=== PATIENT | male | born 1975 | race Hispanic/Latino ===

== ENCOUNTER 2022-10-08 08:46 | Inpatient (IN) | payer OTHER, SELFPAY ==
[2022-10-08] MEDS ORDERED: Morphine 4 MG/ML VIAL ONE (09:09)
[2022-10-08 09:19] LABS: #Basophils 0.1 thou/uL (0.0-0.2); #Eosinphils 0.1 thou/uL (0.0-0.7); #Lymphocytes 3.8 thou/uL (1.20-3.40); #Monocytes 0.7 thou/uL (0.11-0.59); #Neutrophils 10.9 thou/uL (1.40-6.50); %Basophils 0.5 % (0.0-1.0); %Eosinophils 0.8 % (0.0-10.0); %Lymphocytes 24.2 % (21.0-51.0); %Monocytes 4.6 % (0.0-10.0); %Neutrophils 69.8 % (42.0-75.0); Hemoglobin 15.6 g/dL (14.0-18.0); Mean Corpuscular HGB CONC 33.7 g/dL (32.0-36.0); Mean Corpuscular Hemoglobin 31.2 pg (27.0-31.0); Mean Corpuscular Volume 92.5 fl (78.0-98.0); Mean Platelet Volume 7.2 fL (7.4-10.4); Platelet Count 344 10x3/uL (130-400); RBC Distribution Width 12.3 % (11.5-14.5); Red Blood Cell (RBC) Count 5.01 mill/uL (4.70-6.10); White Blood Cell (WBC) Count 15.7 10x3/uL (4.8-10.8)
[2022-10-08 09:30] LABS: INR-International Normal Ratio 0.9; Prothrombin Time 12.2 sec (12.0-14.7)
[2022-10-08 09:46] LABS: ALT (SGPT) 35 U/L (8-55); AST (SGOT) 38 U/L (5-34); Albumin 4.5 g/dL (3.5-5.0); Alcohol Less than 10 mg/dL (Less than 10); Alkaline Phosphatase 62 U/L (40-110); Anion Gap 12 mmol/L (10-20); BUN (Urea Nitrogen) 13 mg/dL (8.9-20.6); Bilirubin, Total 0.6 mg/dL (0.2-1.2); Calc. Creatinine Clearance 0 mL/min (70-130); Calcium 9.3 mg/dL (7.8-10.44); Carbon Dioxide 23 mmol/L (22-29); Chloride 107 mmol/L (98-107); Estimated GFR 92; Globulin 3.1 g/dL (2.4-3.5); Glucose 146 mg/dL (70-105); Lipase 24 U/L (8-78); Potassium 3.2 mmol/L (3.5-5.1); Protein, Total 7.6 g/dL (6.0-8.3); Sodium 139 mmol/L (136-145)
[2022-10-08] MEDS ORDERED: Ketorolac Tromethamine 30 MG/ML VIAL ONE (11:25)
[2022-10-08] MEDS ORDERED: Ondansetron ODT 4 MG TAB PO PRN (11:25)
[2022-10-08] MEDS ORDERED: Ipratropium/Albuterol 3 ML NEB NEB PRN (11:25)
[2022-10-08] MEDS ORDERED: Dextrose 5% in Water 1,000 ML IV PRN (11:25)
[2022-10-08] MEDS ORDERED: hydrALAZINE 20 MG/ML VIAL SLOW IVP PRN ×2 (11:25→11:31)
[2022-10-08] MEDS ORDERED: Morphine 4 MG/ML VIAL SLOW IVP PRN ×2 (11:25→19:27)
[2022-10-08] MEDS ORDERED: Ondansetron PF 4 MG/2 ML Vial IVP PRN (11:25)
[2022-10-08] MEDS ORDERED: Morphine 2 MG/ML VIAL SLOW IVP PRN (11:25)
[2022-10-08] MEDS ORDERED: Dextrose 50% Abboject 50 ML SYRINGE SLOW IVP PRN (11:25)
[2022-10-08] MEDS ORDERED: Sodium Chloride 0.9% 1,000 ML IV SCH ×2 (11:30→15:00)
[2022-10-08] MEDS ORDERED: Cyclobenzaprine 10 MG TAB PO PRN (11:31)
[2022-10-08] MEDS ORDERED: Acetaminophen 500 MG TAB PO SCH (11:45)
[2022-10-08] MEDS ORDERED: traMADol HCl 50 MG TAB PO SCH (11:45)
[2022-10-08] MEDS ORDERED: Iopamidol-370 76% 500 ML 1 ML ONE (12:48)
[2022-10-08 13:18] VITALS: BMI 25.9
[2022-10-08] MEDS ORDERED: FLU VACC QS2022-23(6MOS UP)/PF 60 MCG/0.5 ML SYRINGE IM ONE (13:30)
[2022-10-08] MEDS: Ketorolac Tromethamine 30 MG/ML VIAL IVP SCH ×3 (13:30→23:41)
[2022-10-08] MEDS: Ipratropium/Albuterol 3 ML NEB NEB SCH ×2 (14:56→19:02)
[2022-10-08] MEDS: Gabapentin 300 MG CAP PO SCH ×2 (15:17→21:13)
[2022-10-08] MEDS: Acetaminophen 500 MG TAB PO SCH ×2 (15:18→21:12)
[2022-10-08] MEDS: traMADol HCl 50 MG TAB PO SCH ×2 (17:33→23:41)
[2022-10-08] MEDS ORDERED: Loratadine 10 MG TAB PO PRN (19:32)
[2022-10-08] MEDS: Famotidine 20 MG TAB PO SCH (21:13)
[2022-10-08] MEDS: Senokot S 8.6-50 MG TAB PO SCH (21:14)
[2022-10-09] MEDS: Acetaminophen 500 MG TAB PO SCH ×3 (04:28→15:44)
[2022-10-09] MEDS: traMADol HCl 50 MG TAB PO SCH ×2 (05:25→11:16)
[2022-10-09] MEDS: Ketorolac Tromethamine 30 MG/ML VIAL IVP SCH (05:25)
[2022-10-09] MEDS: Ipratropium/Albuterol 3 ML NEB NEB SCH ×2 (07:26→15:01)
[2022-10-09 07:27] LABS: #Eosinphils 0.1 thou/uL (0.0-0.7); #Lymphocytes 1.5 thou/uL (1.20-3.40); #Neutrophils 8.5 thou/uL (1.40-6.50); %Basophils 0.1 % (0.0-1.0); %Eosinophils 0.6 % (0.0-10.0); %Lymphocytes 13.9 % (21.0-51.0); %Monocytes 8.7 % (0.0-10.0); %Neutrophils 76.7 % (42.0-75.0); Hemoglobin 13.3 g/dL (14.0-18.0); Mean Corpuscular HGB CONC 33.5 g/dL (32.0-36.0); Mean Corpuscular Hemoglobin 31.5 pg (27.0-31.0); Mean Platelet Volume 7.5 fL (7.4-10.4); Platelet Count 249 10x3/uL (130-400); RBC Distribution Width 12.5 % (11.5-14.5); Red Blood Cell (RBC) Count 4.22 mill/uL (4.70-6.10)
[2022-10-09 07:52] LABS: Anion Gap 13 mmol/L (10-20); BUN (Urea Nitrogen) 18 mg/dL (8.9-20.6); Calc. Creatinine Clearance 132 mL/min (70-130); Calcium 8.6 mg/dL (7.8-10.44); Carbon Dioxide 19 mmol/L (22-29); Chloride 107 mmol/L (98-107); Estimated GFR 111; Glucose 103 mg/dL (70-105); Magnesium 2.4 mg/dL (1.6-2.6); Phosphorus 3.3 mg/dL (2.3-4.7); Potassium 3.8 mmol/L (3.5-5.1); Sodium 135 mmol/L (136-145)
[2022-10-09 08:20] VITALS: TEMP 98.1
[2022-10-09] MEDS ORDERED: Polyethylene Glycol 3350 17 GM Packet PO SCH (09:00)
[2022-10-09] MEDS: Famotidine 20 MG TAB PO SCH (10:09)
[2022-10-09] MEDS: Gabapentin 300 MG CAP PO SCH ×2 (10:11→15:44)
[2022-10-09] MEDS: Senokot S 8.6-50 MG TAB PO SCH (10:11)
[2022-10-09] MEDS ORDERED: Ibuprofen 200 MG TAB PO PRN (10:15)
[2022-10-09 12:37] VITALS: BP 125/78
== END 2022-10-09 16:20 | disposition home or self-care (01) | DRG 200 ==
LOC: ERS 08:46 → EDBD 11:25 → SURG A 11:25
PROVIDERS: ADMIT Surgery; ATTEND Surgery
DX: S27.0XXA Traumatic pneumothorax, initial encounter (principal); S22.089A Unspecified fracture of T11-T12 vertebra, initial encounter for closed fracture; S22.41XA Multiple fractures of ribs, right side, initial encounter for closed fracture; S62.201A Unspecified fracture of first metacarpal bone, right hand, initial encounter for closed fracture; W11.XXXA Fall on and from ladder, initial encounter; T79.7XXA Traumatic subcutaneous emphysema, initial encounter; S42.141A Displaced fracture of glenoid cavity of scapula, right shoulder, initial encounter for closed fracture; S49.81XA Other specified injuries of right shoulder and upper arm, initial encounter; Y93.H2 Activity, gardening and landscaping; Z82.49 Family history of ischemic heart disease and other diseases of the circulatory system; F17.210 Nicotine dependence, cigarettes, uncomplicated
CPT/HCPCS: 36415; 70450; 71045; 71260; 72125; 72170; 74177; 80048; 80053; 80307; 83690; 83735; 84100; 85025; 85610; 85730; 94640; 96374; 96376; J1885; J2270; J7050; J7620; Q9967